=== PATIENT | male | born 1965 | race Caucasian/White ===

== ENCOUNTER → 2017-07-23 | Outpatient (CLI) | payer BC | LOC: FIMAGING 08:27 | PROVIDERS: ATTEND Physician Assistant Medical | DX: R13.10 Dysphagia, unspecified (principal); K44.9 Diaphragmatic hernia without obstruction or gangrene ==

== ENCOUNTER → 2017-12-13 | Outpatient (CLI) | payer BC ==
[~2017-12-13] MED LIST: IOPAMIDOL (ISOVUE-300) 100 ML BTL ONE
== END ==
LOC: FIMAGING 08:02
PROVIDERS: ATTEND Surgery
DX: C18.6 Malignant neoplasm of descending colon (principal)
CPT/HCPCS: Q9967

== ENCOUNTER 2017-12-21 06:02 | Inpatient (IN) | payer BC ==
[2017-12-21] MEDS ORDERED: LR 1,000 ML IV ONE (06:12)
[2017-12-21] MEDS ORDERED: LIDOCAINE 1% 2 ML INJ ID PRN (06:12)
[2017-12-21] MEDS ORDERED: BUPIVACAINE 0.5% 30 ML SDV ONE (07:06)
[2017-12-21] MEDS ORDERED: cefOXitin SODIUM 2 GM in NS 100 ML IV ONE (07:24)
[2017-12-21] MEDS ORDERED: MIDAZOLAM 2 MG/2 ML VIAL IVP ONE (07:25)
[2017-12-21] MEDS ORDERED: SCOPOLAMINE HYDROBROMIDE 1 MG/3 DAYS PATCH TD SCH (07:30)
--- NOTE | 2017-12-21 07:37 | PDHPUP ---
History & Physical Update H&P update statement: This history and physical update is based on an assessment of the patient which was completed after admission or registration (within 24 hours), but prior to the surgery/procedure. H&P update: H&P reviewed & patient examined, no change in patient's condition since H&P completed
--- NOTE | 2017-12-21 07:37 | PDANEPAE ---
ANE History of Present Illness Davinci sigmoid colon resection ANE Past Medical History - Cardiovascular History Hx Hypertension: No Hx Arrhythmias: No Hx Chest Pain: No Hx Coronary Artery / Peripheral Vascular Disease: No Hx CHF / Valvular Disease: No Hx Palpitations: No - Pulmonary History Hx COPD: No Hx Asthma/Reactive Airway Disease: No Hx Recent Upper Respiratory Infection: No Hx Oxygen in Use at Home: No Hx Sleep Apnea: No Sleep Apnea Screening Result - Last Documented: Positive Pulmonary History Comment: ROLAND triggers - Neurologic History Hx Cerebrovascular Accident: No Hx Seizures: No Hx Dementia: No Neurologic History Comment: 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 - Endocrine History Hx Diabetes: No Hypothyroid: No Hyperthyroid: No Obesity: mild - Renal History Hx Renal Disorders: No - Liver History Hx Hepatic Disorders: No - Neurological & Psychiatric Hx Hx Neurological and Psychiatric Disorders: No - Cancer History Hx Cancer: Yes Cancer History Comment: colon, 11/2017 - Congenital Disorder History Hx Congenital Disorders: No - GI History GERD: mild Hx Gastrointestinal Disorders: Yes Gastrointestinal History Comment: GERD - Other Health History Other Health History: wears glasses - Chronic Pain History Chronic Pain: No - Surgical History Prior Surgeries: appendectomy, 1996. wisdom tooth extraction ANE Review of Systems Review of systems is: negative Review of Systems: - Exercise capacity METS (RN): 4 METS ANE Patient History - Allergies Allergies/Adverse Reactions: No Known Allergies Allergy (Verified 12/14/17 14:45) - Home Medications Home Medications: Herbals/Supplements -Info Only 1 ea PO DAILY 12/09/17 [Last Taken 12/12/17] Prilosec 12/14/17 [Last Taken 12/21/17] Vitamin D3 12/14/17 [Last Taken 12/14/17] - NPO status NPO Status: no food or drink >8 hours NPO Since - Liquids (Date): 12/21/17 NPO Since - Liquids (Time): 04:00 NPO Since - Solids (Date): 12/20/17 NPO Since - Solids (Time): 16:00 - Anes Hx Anes Hx: no prior problems - Smoking Hx Smoking Status: Never smoked - Family Anes Hx Family Anes Hx: none, neg - N/A Family Hx Anesthesia Complications: none ANE Labs/Vital Signs - Vital Signs Height: 193.04 cm Weight: 111.13 kg ANE Physical Exam - Airway Neck exam: FROM Mallampati Score: Class 2 Mouth exam: normal dental/mouth exam - Pulmonary Pulmonary: no respiratory distress, no rales or rhonchi - Cardiovascular Cardiovascular: regular rate and rhythym, no murmur, rub, or gallop - ASA Status ASA Status: II ANE Anesthesia Plan Anesthesia Plan: general endotracheal anesthesia (TAP if open)
[2017-12-21] MEDS ORDERED: fentaNYL 100 MCG/2 ML INJ ONE (07:42)
[2017-12-21] MEDS ORDERED: fentaNYL 250 MCG/5 ML INJ ONE ×2 (07:42→09:04)
[2017-12-21] MEDS ORDERED: GLYCOPYRROLATE 0.2 MG/1 ML VIAL ONE (07:42)
[2017-12-21] MEDS ORDERED: ROCURONIUM 100 MG/10 ML VIAL ONE (07:42)
[2017-12-21] MEDS ORDERED: PROPOFOL/EMULSION 500 MG/50 ML BOTTLE IV ONE ×3 (07:42→09:04)
[2017-12-21] MEDS ORDERED: DEXAMETHASONE 4 MG/ML VIAL ONE ×3 (07:43→11:56)
[2017-12-21] MEDS ORDERED: INDOCYANINE GREEN 25 MG VIAL ONE (07:44)
[2017-12-21] MEDS ORDERED: LABETALOL HCL 5 MG/ML 20 ML MDV ONE (08:37)
[2017-12-21] MEDS ORDERED: PROPOFOL 200 MG/20 ML VIAL ONE (09:04)
[2017-12-21] MEDS ORDERED: ROCURONIUM 50 MG/5 ML VIAL ONE ×2 (10:03→11:56)
[2017-12-21] MEDS ORDERED: SUGAMMADEX SODIUM 200 MG/2 ML VIAL IVP ONE (11:45)
[2017-12-21] MEDS ORDERED: ONDANSETRON 4 MG/2 ML VIAL IVP PRN ×2 (11:49→12:02)
[2017-12-21] MEDS ORDERED: ALBUTEROL 3 ML DEYVIAL IH PRN (11:49)
[2017-12-21] MEDS ORDERED: fentaNYL 100 MCG/2 ML INJ IVP PRN (11:49)
[2017-12-21] MEDS ORDERED: PROMETHAZINE HCL 25 MG/ML INJ IVP PRN (11:49)
[2017-12-21] MEDS ORDERED: NALOXONE HCL 0.4 MG/ML INJ IVP PRN (11:49)
[2017-12-21] MEDS ORDERED: HYDROmorphONE/DILAUDID 2 MG/ML INJ IVP PRN (11:49)
[2017-12-21] MEDS ORDERED: ONDANSETRON 4 MG/2 ML VIAL ONE (11:56)
[2017-12-21] MEDS ORDERED: KETOROLAC 30 MG/1 ML SDV ONE (11:56)
--- NOTE | 2017-12-21 12:01 | POSTOPPROG ---
Post Op Note Date of Operation: 12/21/17 Surgeon: Musa Wynn Outpatient Physical Therapist: Dr. Neff Anesthesiologist: Dr. Gamez Anesthesia: GET(General Endotracheal) Pre-op Diagnosis: Colon CA Post-op Diagnosis: same Procedure: Robotic left colectomy Inf/Abcess present in the surg proc area at time of surgery?: No EBL: Minimal
[2017-12-21] MEDS ORDERED: HYDROmorphone HCL 0.5 MG/0.5 ML SYR IVP PRN (12:03)
[2017-12-21] MEDS ORDERED: LR 1,000 ML IV SCH (12:30)
--- NOTE | 2017-12-21 13:12 | PDMN ---
Medical Necessity Medical necessity: 52 yo [place] 06304[place] [facility] [place] Surgery: Colectomy, Partial, with or without Ostomy, by Laparoscopy, [facility] only
--- NOTE | 2017-12-21 15:18 | GOP ---
DATE OF OPERATION: 12/21/2017 SURGEON: Dilan Wynn MD [employer] SUPERVISOR: Dr. Neff, whose presence was requested by me and medically necessary for the safe a nd timely completion of the case. ANESTHESIA: General endotracheal anesthesia. ANESTHESIOLOGIST: Dr. Gamez. PREOPERATIVE DIAGNOSIS: Left-sided colon cancer. POSTOPERATIVE DIAGNOSIS: Left-sided colon cancer. PROCEDURE PERFORMED: Robotic left colectomy. FINDINGS: The patient had a small to moderate mass in the superior portion of the sigmoid colon. No other lesions were identified. ESTIMATED BLOOD LOSS: 40 cc. INDICATIONS: A 52-year-old male with a history of mass on colonoscopy. Biopsy returned adenocarcino ma. CT scan demonstrated no evidence of metastases. Risks and benefits of procedure discussed with the patient's family, their questions were answered and they wished to proceed. DESCRIPTION OF PROCEDURE: Patient in supine position initially. After induction of adequate general endotracheal anesthesia, the patient was moved to modified lithotomy position. Herring was placed and the patient prepped and draped in standard surgical fashion. Half percent Marcaine was injected thr oughout the left upper quadrant for local anesthesia. An 8 mm incision was made transversely with a #15 blade, carried down to subcutaneous tissue with blunt dissection. Abdominal wall was elevated. A Veress needle was inserted. After noting proper pressures, the abdomen was insufflated with carbon dioxide. Four more ports were placed, two 8 mm ports in the periumbilical area, one 15 mm port in t he right lower quadrant, one 8 mm assistant facility manager port in the right upper quadrant. These were all placed under direct vision after injecting 0.5% Marcaine for local anesthesia. Prior to docking the robot, there were multiple adhesions from prior surgery from the omentum to the anterior abdominal wall. These were taken down using sharp dissection cautery. Once this was ensure d to be clear, the abdomen was inspected and no peritoneal or omental lesions were identified. The robot was docked and the colon inspected. The tattooing was identified in the superior aspect of the sigmoid colon. The colon was examined along its length and no other lesions were identified. M edial to lateral dissection was initiated. Due to the superior aspect of the mass, the inferior mese nteric artery was not taken. However, the mesentery was transected very close to the iliac artery. The ureter was seen and preserved. The white line of Toldt was then mobilized using sharp dissection and cautery. The patient had a redundant sigmoid colon that required minimal mobilization. The mes entery was taken to the points of transection proximal and distal, which were approximately 6 cm on e ither side of the mass itself. Prior to transection, firefly was used to ensure the adequacy of circ ulation. The transection was performed with the robotic stapler requiring 2 loads on the proximal si de and 1 on the distal side. Due to the redundant sigmoid colon, decision was made to perform an ext racorporeal anastomosis. After ensuring adequate hemostasis, the robot was undocked. A new incision was made in the left lowe r quadrant after injecting 0.5% Marcaine for local anesthesia. This was done with a #10 blade and ca rried down to subcutaneous tissue using Bovie cautery. The anterior fascia of the rectus was incised and the muscle underneath was split bluntly. The posterior sheath was then also incised sharply. T he abdomen was entered and a small Ho wound protector placed. The specimen was delivered into th e wound and marked with a proximal suture. It was sent for permanent section. The sites for transec tion were then delivered into the wound and noted to have excellent reach with no tension. The ends did appear quite viable. Decision was made to perform a hand-sewn anastomosis. After putting a post erior row of 3-0 Vicryl sutures, the staple lines were excised sharply. No contamination was found. The next layer was performed with a running 3-0 Vicryl x2. The anterior layer was then completed us ing 3-0 Vicryl interrupted in a Lembert fashion. Anastomosis was palpated and found to be widely pat ent. The anastomosis was inspected and found to be completely intact. No other lesions were noted. The bowel was returned to the abdomen. Abdomen was then thoroughly irrigated and aspirated. Good h emostasis was noted. The wound protector was removed and the fascia closed in layers using 0 PDS in a running fashion. The fascia at the 15 mm port site was closed using 0 Vicryl on a UR6 needle. Wou nds were thoroughly irrigated. The skin at all sites was closed with 4-0 Monocryl in a subcuticular stitch. Wounds were sterilely dressed, and the patient was returned to the lithotomy position and ex tubated. He was then taken to PACU in stable condition. COMPLICATIONS: None. DRAINS: None. /[id number]/MODL
--- NOTE | 2017-12-21 16:04 | POSTANESTH ---
Post Anesthetic Evaluation Cardiovascular Status: Normal, Stable Respiratory Status: Normal, Stable Level of Consciousness/Mental Status: Can Participate in Eval Pain Control: Adequate, Prn Tx Ordered Nausea/Vomiting Control: Adequate, Prn Tx Ordered Complications Possibly Related to Anesthesia: None Noted
[2017-12-21] MEDS: cefOXitin SODIUM 2 GM in NS 100 ML IV SCH (18:13)
[2017-12-21] MEDS: KETOROLAC 15 MG/1 ML SDV IVP SCH (20:18)
[2017-12-22] MEDS: cefOXitin SODIUM 2 GM in NS 100 ML IV SCH ×3 (01:18→12:21)
[2017-12-22] MEDS: KETOROLAC 15 MG/1 ML SDV IVP SCH ×3 (03:49→18:51)
[2017-12-22] MEDS: PANTOPRAZOLE SODIUM 40 MG TAB PO SCH (08:37)
--- NOTE | 2017-12-22 09:55 | SOAPPROG ---
SOAP Progress Note Assessment/Plan: Assessment: S/P robotic L HC, doing well. Advance diet, ambulate. Poss transition to po pain meds. Discussed signs/symptoms of concern. Plan: 12/22/17 09:53 Subjective: Patient without complaints, minimal pain, no N/V. Bran clears, no flatus/BM. Objective: Vital Signs Temp Pulse Resp BP Pulse Ox 36.6 C 65 16 117/69 94 12/22/17 08:32 12/22/17 08:32 12/22/17 08:32 12/22/17 08:32 12/22/17 08:32 Laboratory Results 12/22/17 04:12 12/22/17 04:12 12/21/17 12/22/17 12/23/17 05:59 05:59 05:59 Intake Total 2920 1546 Output Total 225 Balance 2695 1546 Alert, NAD RRR Abd soft, [employer] C/D/I ICD10 Worksheet Patient Problems: Problems Problem Status Onset Colon cancer Acute - ICD10 Problem Qualifiers (1) Colon cancer
[2017-12-23] MEDS: KETOROLAC 15 MG/1 ML SDV IVP SCH ×2 (03:26→10:57)
[2017-12-23 08:32] VITALS: BP 136/78
--- NOTE | 2017-12-23 08:55 | ASMTCMCOM ---
CM Note CM Note Notes: Patient chart reviewed, S/P colectomy for diagnosis of colon cancer. Plan of care unclear at this point. CM to follow for needs. Plan: TBD Date Signed: 12/23/2017 08:54 AM Electronically Signed By:Natividad Day RN
--- NOTE | 2017-12-23 09:34 | SOAPPROG ---
SOAP Progress Note Assessment/Plan: Assessment: S/P robotic L HC, doing well. Plan d/c, instructions given. Plan: 12/22/17 09:53 12/23/17 09:33 Subjective: Patient without complaints, minimal pain. Bran po, + BM. Ambulating, voiding. Objective: Vital Signs Temp Pulse Resp BP Pulse Ox 36.6 C 57 L 16 136/78 H 94 12/23/17 08:30 12/23/17 08:30 12/23/17 08:30 12/23/17 08:30 12/23/17 08:30 Laboratory Results 12/22/17 04:12 12/22/17 04:12 12/22/17 12/23/17 12/24/17 05:59 05:59 05:59 Intake Total 2920 2496 Output Total 225 Balance 2695 2496 Alert, NAD RRR Abd soft, [employer] C/D/I ICD10 Worksheet Patient Problems: Problems Problem Status Onset Colon cancer Acute - ICD10 Problem Qualifiers (1) Colon cancer
[2017-12-23] MEDS: PANTOPRAZOLE SODIUM 40 MG TAB PO SCH (09:44)
--- NOTE | 2017-12-23 10:39 | ASDISCHSUM ---
Discharge Information Plan Status:Home with No Needs Medically Cleared to Leave:12/23/2017 Discharge Date:12/23/2017 CM D/C Disposition:Home, Routine, Self-Care ADT D/C Disposition:Home, Routine, Self-Care Projected Discharge Date:12/23/2017 Transportation at D/C:Family Discharge Delay Reason: Follow-Up Date:12/23/2017 Discharge Slot: Final Diagnosis: Placement Information Patient Contact Information Contact Name:MOHINI Relationship: Address:[address] City:[place] Alternate Phone: [facility]/Zip Code:[place] [address] Email: Financial Information Financial Class:BCOP Primary Plan Desc:[facility] [employer] Primary Plan Number:[id number] Secondary Plan Desc: Secondary Plan Number: Assessment Information [facility] CM Progress Note CM Note CM Note Notes: Patient chart reviewed, S/P colectomy for diagnosis of colon cancer. Plan of care unclear at this point. CM to follow for needs. Plan: TBD Date Signed: 12/23/2017 08:54 AM Electronically Signed By:Natividad Day RN [facility] CM Progress Note CM Note CM Note Notes: Patient has been medically cleared for discharge to home with family support. Independent and no current needs identified CM available should needs arise. Plan: Home Independent. Date Signed: 12/23/2017 10:37 AM Electronically Signed By:Natividad Day RN Intervention Information
== END 2017-12-23 12:07 | disposition home or self-care (01) | DRG 331 ==
LOC: F3N 06:02 → F1N 13:20
PROVIDERS: ADMIT Surgery; ATTEND Surgery
PROC: 0DBM4ZZ Excision of Descending Colon, Percutaneous Endoscopic Approach (ICD-10-PCS; principal; 2017-12-21 07:30)
PROC: 8E0W4CZ Robotic Assisted Procedure of Trunk Region, Percutaneous Endoscopic Approach (ICD-10-PCS; principal; 2017-12-21 07:30)
DX: C18.6 Malignant neoplasm of descending colon (principal)
CPT/HCPCS: J0694; J1100; J1885; J2250; J2405; J2704; J3010